=== PATIENT | female | born 1990 | race Caucasian/White ===

== ENCOUNTER 2024-08-24 11:33 | Emergency (ER) | payer BC ==
[~2024-08-24] VITALS: Ht 162.6 cm; Wt 60.0 kg
[2024-08-24 11:39] VITALS: BP 121/89; PULSE 114; RESP 18; TEMP 98.8; O2SAT 99
== END 2024-08-24 12:33 ==
LOC: ER 11:33
DX: F10.129 Alcohol abuse with intoxication, unspecified (principal); Y90.9 Presence of alcohol in blood, level not specified
CPT/HCPCS: 99283